=== PATIENT | female | born 1985 | race Caucasian/White ===

== ENCOUNTER 2020-08-25 21:13 | Emergency (ER) | payer OTHER, SELFPAY ==
[2020-08-25 21:34] VITALS: BP 131/80; PULSE 87; RESP 16; TEMP 37.8; O2SAT 98; BMI 29.8
--- NOTE | 2020-08-25 22:39 | ED_ITS ---
HPI - Skin/Abscess/Foreign Bdy General Chief complaint: Skin/Abscess/Foreign Body Stated complaint: ABSCESS Time Seen by Provider: 08/25/20 22:36 Source: patient Mode of arrival: ambulatory Limitations: no limitations History of Present Illness HPI narrative: abscess in the right armpit for 10 days, patient claimed it got better because she was on 10 days clindamycin for tooth infection. No fever or chills. Related Data Allergies Allergy/AdvReac Type Severity Reaction Status Date / Time Sulfa (Sulfonamide Allergy Intermediate RASH, hives Unverified 07/22/20 19:12 Antibiotics) [SULFA (SULFONAMIDE ANTIBIOTICS)] penicillin V Allergy Unknown hives Verified 11/03/16 00:00 Penicillins [PCN] Allergy Unknown UNKNOWN Unverified 07/22/20 19:12 sulfamethoxazole Allergy Unknown HIVES Unverified 07/22/20 19:12 [From BACTRIM] trimethoprim [From BACTRIM] Allergy Unknown HIVES Unverified 07/22/20 19:12 Review of Systems Review of Systems: All other systems are reviewed and are negative Constitutional: Reports as per HPI and Reports no additional constitutional complaints Eyes: Reports as per HPI and Reports no additional eye complaints Reports system reviewed and no additional complaints, except as documented Cardiovascular: Reports as per HPI and Reports no additional cardiovascular complaints Respiratory: Reports as per HPI and Reports no additional respiratory complaints Gastrointestinal: Reports as per HPI and Reports no additional gastrointestinal complaints Genitourinary: Reports no additional female genitourinary complaints Musculoskeletal: Reports no additional musculoskeletal complaints Skin/Breast: Reports system reviewed and no additional complaints, except as docu Psychiatric: Reports no additional psychiatric complaints Endocrine: Reports no additional endocrine complaints Hematologic/Lymphatic: Reports no additional hematologic/lymphatic complaints Allergic/Immunologic: Reports no additional allergic/immunologic complaints Reports system reviewed and no additional complaints, except as documented and Reports Abnormal speech present [facility] Past Medical History Medical History Anxiety Depression Surgical History History of hysterectomy Social History Social History Alcohol intake: current Alcohol intake frequency: holidays/special occasions only Alcohol type: beer and wine Smoking Status: Current every day smoker Smoked in Last 30 Days: Yes Use of substances other than those prescribed or required for medical reasons: No Advance Directives: No Advance Directives Information Provided: Yes Physical Exam Vital Signs: Vital Signs: Vital Signs Temp Pulse Resp BP Pulse Ox 08/25/20 21:34 100.0 F 87 16 131/80 98 Body Mass Index 29.8 vital signs have been reviewed as normal and appeared to be correct. Blood pressure normal. Heart rate normal. Respiration rate normal. Temperature normal. Oxygen saturation normal. Appearance: Alert. Oriented X3. No acute distress. Head: Normal external exam. Normocephalic. Atraumatic. No Diaz signs noted. No raccoon eyes noted Eyes: PERRLA. EOMI. Conjunctiva and sclera normal. Eyelids normal. ENT: EAC normal. TM's Normal. Pharynx normal. Uvula midline. Moist mucous membranes. No trismus noted. No drooling noted. No muffled voice noted. Neck: Normal inspection. Neck supple. FROM. No adenopathy. Thyroid Normal. No meningeal signs. No neck mass noted. CVS: Normal heart rate and rhythm. Heart sound normal. No murmurs noted. Pulses normal throughout. Respiratory: No respiratory distress. Painless inspiration. Breath sounds normal. No wheezes/rales/rhonchi noted. Chest nontender. No accessory muscle usage noted or decreased air movement noted. Abdomen: Soft and nontender. Bowel sounds normal in all 4 quadrants. No distention noted. No organomegaly noted. No visible injury noted. Back: No CVA tenderness. Full range of motion noted. Skin: Small 2 x 2 cm area of fluctuation surrounded by small area of redness, no discharge, mildly tender. Extremities: No lower extremity edema. Extremities exhibit normal range of motion. Extremities nontender. Neuro: Oriented X 3. No motor deficit. No sensory deficit. Reflexes normal. Course Course Course Narrative: Right armpit abscess Procedures Abscess I/D Site: other ( axilla) Side (if applicable): right Local Anesthetic: lidocaine 1% Amount of anesthesia used (mL): 3 Technique: incised with blade Amount of fluid expressed (mL): 5 Irrigation: Yes Packing used?: iodoform Complications: pain MDM - Skin/Abscess/Foreign Bdy MDM Narrative Medical decision making narrative: 35-year-old female with multiple frequent abscesses in the past but came in with right armpit abscess, status post I&D with packing, patient just finished 10 days of clindamycin for tooth pain I felt is not necessary to give another course of antibiotic. Discharge Plan Discharge Clinical Impression: Abscess of skin or subcutaneous tissue Qualifiers: Site of cutaneous abscess of extremity: axilla Laterality: right Patient Disposition: Home, Self-Care Instructions: Abscess (ED)
[2020-08-25] MEDS: Lidocaine HCl 1 % 20 ML VIAL SUBCUT (23:27)
[2020-08-25] MEDS: oxyCODONE HCl Immed Release 5 MG TABLET PO (23:27)
== END 2020-08-25 23:33 | disposition home or self-care (01) ==
PROVIDERS: Emergency Provider Emergency Medicine
DX: L02.411 Cutaneous abscess of right axilla (principal); F17.200 Nicotine dependence, unspecified, uncomplicated
CPT/HCPCS: 10060; 99284